=== PATIENT | male | born 1975 | race Caucasian/White ===

== ENCOUNTER 2024-07-03 06:17 | Day surgery (SDC) | payer OTHER, SELFPAY | END 2024-07-03 11:43 | disposition home or self-care (01) | LOC: GI 06:17 | PROVIDERS: ATTENDING PHYSICIAN Internal Medicine | DX: Z12.11 Encounter for screening for malignant neoplasm of colon (principal); K64.8 Other hemorrhoids; D12.4 Benign neoplasm of descending colon; D12.3 Benign neoplasm of transverse colon; K63.5 Polyp of colon | CPT/HCPCS: 45380; 88305 ==